=== PATIENT | male | born 1990 | race Caucasian/White ===

== ENCOUNTER 2024-12-02 02:05 | Emergency (ER) | payer OTHER ==
[~2024-12-02] VITALS: Ht 170.2 cm; Wt 93.1 kg
[~2024-12-02 02:05] MED LIST: CYCLOBENZAPRINE10 MG PO; NAPROSYN500 MG PO; ROBAXIN-750750 MG PO
[2024-12-02] MEDS ORDERED: HYDROCODONE/ACETA 5/325 TAB PO ONE (02:30)
[2024-12-02] MEDS ORDERED: KETOROLAC TROMETHAMINE 60 MG/2 ML VIAL IM ONE (02:30)
[2024-12-02] MEDS ORDERED: methylPREDNISolone 4 MG HOME.PACK PO ONE (03:00)
[2024-12-02] MEDS ORDERED: HYDROCODONE BIT/ACETAMINOPHEN 5/325 MG 1 TAB HOME.PACK PO ONE (03:00)
[2024-12-02] MEDS ORDERED: HYDROCODON-ACE1 EA10 PO (03:01)
[2024-12-02] MEDS ORDERED: SILVER SULFADIAZINE 400 GM HOME.PACK TOP ONE (03:15)
[2024-12-02 04:03] VITALS: BP 105/61
== END 2024-12-02 04:03 | disposition home or self-care (01) ==
LOC: ED 02:05
DX: M54.16 Radiculopathy, lumbar region (principal)
CPT/HCPCS: 72100; 96372; 99283; A9270; J1885